=== PATIENT | male | born 1975 | race Caucasian/White ===

== ENCOUNTER 2023-09-29 10:35 | Outpatient (CLI) | payer OTHER, SELFPAY | END 2023-09-29 10:36 | disposition home or self-care (01) | LOC: AMB 10-08 08:21 | PROVIDERS: Visit Provider Emergency Medicine | DX: S09.90XA Unspecified injury of head, initial encounter (principal); W11.XXXA Fall on and from ladder, initial encounter; Y93.H3 Activity, building and construction; Y92.512 Supermarket, store or market as the place of occurrence of the external cause | CPT/HCPCS: A0425; A0427 ==

== ENCOUNTER 2023-09-29 11:07 | Emergency (ER) | payer OTHER, SELFPAY ==
[2023-09-29] VITALS (12 sets, daily range): BP systolic 135–159; BP diastolic 86–109; PULSE 102–117; RESP 18; TEMP 36.8; O2SAT 94–98; BMI 38.5
--- NOTE | 2023-09-29 11:12 | CT_ITS ---
Patient: NATASHA SELLERS Facility:?[facility] Patient ID:?[id number] Site Patient ID:?[id number]. Site :?[id number] Study:?CT-Head CODE TRAUMA-09/29/2023 11:26:23 AM Ordering Physician:?DR. FARLEY Final Report: INDICATION: Fall, head trauma TECHNIQUE: CT head without contrast. COMPARISON: None. FINDINGS: CSF spaces: Within normal limits for age. Brain parenchyma: The garcia-white differentiation is normal. No sign of mass, hemorrhage, or midline shift. Skull base and calvarium: Mucosal thickening paranasal sinuses. Left parietal scalp hematoma. The visualized orbits are grossly unremarkable. No skull fractures. IMPRESSION: Left parietal scalp hematoma without calvarial fracture or intracranial bleed. Please note that all CT scans at this facility use dose modulation, iterative reconstruction, and/or weight-based dosing when appropriate to reduce radiation dose to as low as reasonably achievable. Dictated by Eldon Villasenor MD @ 09/29/2023 11:40:40 AM Signed by:?Eldon Villasenor MD @09/29/2023 11:40:40 AM (Electronic Signature)
--- NOTE | 2023-09-29 11:13 | ED_ITS ---
HPI - General Adult General Date Seen: 09/29/23 Chief complaint: Fall/Minor Trauma Stated complaint: Fall from ladder Time Seen by Provider: 09/29/23 11:12 History of Present Illness HPI narrative: This is a 47-year-old generally healthy male who is brought to the ER today by EMS for head injury. He is a trauma team activation, activated pre-hospital. He is generally healthy. He is allergic to penicillin. Last tetanus shot was in 2020. He is from [place]. 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. He was up on a ladder. His feet were probably 5 ft above the ground. The ladder slipped or buckled underneath him and he fell. He struck his head against the ground. No loss of consciousness but he did suffer head injury. He has a fairly large left parietal scalp hematoma with an overlying abrasion. Small amount of scalp bleeding that was easily controlled by direct pressure. He has had a headache since onset. No other neurologic symptoms. No nausea. No blurry vision. No confusion. No seizure. No numbness or tingling in his arms or legs. He was able to ambulate after the fall. Because of his headache EMS established a 22 gauge IV in his right hand and gave him fentanyl for his headache. He did not have any neck pain or back pain. No chest pain or abdominal pain. Patient is alert and oriented he is worried about his head injury. He does not take any medications. No blood thinners. No history of coagulopathy. Related Data Allergies Allergy/AdvReac Type Severity Reaction Status Date / Time Penicillins Allergy Verified 09/29/23 12:11 Sulfa (Sulfonamide AdvReac Severe Rash Verified 09/29/23 12:11 Antibiotics) Exam Narrative: Exam Narrative: Primary survey Airway-patent. Breathing easily. No stridor Breathing-lung sounds clear and equal. Oxygen normal on room air. No chest Circulation-regular rate rhythm. Some symmetric cap refill in 4 extremities. No active bleeding. Blood pressure elevated, likely due to anxiety and pain Disability-no focal deficits. Alert and ordered x3. GCS 15. Following commands. Move all 4 extremities purposefully Constitutional: Appears well-developed and well-nourished. Alert. Conversant. Non toxic. HENT: Head: There is a 8 x 8 cm left parietal scalp hematoma with an overlying scalp abrasion. No active bleeding. No palpable depressed skull fracture.. Nose: Nose normal. Mouth/Throat: Oral mucosa is clear and moist. no trismus. Pharynx normal. Tonsils symmetric. No tonsillar enlargement, erythema, or exudate. Lower teeth are normal. Upper teeth are absent. Eyes: Conjunctivae normal. EOM normal. Pupils equal, round, and reactive to light. No scleral icterus. Neck: Normal range of motion. Neck supple. No tracheal deviation present. No posterior midline tenderness. No step-off. Trachea midline. No signs of neck trauma Cardiovascular: Normal rate, regular rhythm. No gallop. No friction rub. No murmur heard. Symmetric radial and PT artery pulses Pulmonary/Chest: Effort normal. No stridor. No respiratory distress. No wheezes. No rales. No rhonchi . No ribcage tenderness. Abdominal: Soft. Bowel sounds normal. No distension. No mass. No tenderness. No rebound. No guarding. Musculoskeletal: No T or L-spine tenderness. Pelvis stable per RUE: Normal range of motion. No tenderness. No deformity LUE: Normal range of motion. No tenderness. No deformity RLE: Normal range of motion. No edema. No tenderness. No deformity LLE: Normal range of motion. No edema. No tenderness. No deformity Neurological: Mental status normal. Attention normal. Alert and oriented x3. GCS 15. Memory normal. Speech fluent. Cognition normal. Cranial Nerves intact II-XII except I did not formally test gag or visual acuity. EOMI. Palate elevates symmetrically and tongue protrudes in the midline. Strength: 5/5 trapezius on the right and left 5/5 deltoid on the right and left 5/5 biceps on the right and left 5/5 triceps on the right and left 5/5 anesthetist on the right and left 5/5 thumb opposition on the right and le ft 5/5 finger abduction on the right and le ft 5/5 hip flexors (L3) on the right and le ft 5/5 quadriceps (L4) on the right and lef t 5/5 tibialis anterior on the right and l eft 5/5 EHL (L5) on the right and left 5/5 gastrocnemius (S1) on the right and left 5/5 hamstring on the right and left Sensation intact to light touch in both upper extremities (C4-T1) Sensation intact to light touch in Both lower extremities (L4-S1). Finger to nose and coordination normal. Gait normal. Skin: Skin is warm and dry. No rash noted. No pallor. Normal capillary refill. Psychiatric: He is worried about the potential for brain injury. I think he is worried about what EMS told him. However he is alert and oriented has good recollection. He is appropriate, cooperative, polite. Const: Vital Signs, click to edit/add: Vital Signs - 24 hr 09/29/23 11:22 09/29/23 11:23 09/29/23 11:27 Temperature Pulse Rate 106 H 112 H 104 H Pulse Rate [Right Pulse Oximeter] Respiratory Rate Blood Pressure 156/96 H 150/98 H Blood Pressure [Ri ght Upper Arm] Pulse Oximetry 97 97 96 Oxygen Delivery Me thod 09/29/23 11:30 09/29/23 11:31 09/29/23 11:41 Temperature Pulse Rate 117 H 107 H 107 H Pulse Rate [Right Pulse Oximeter] Respiratory Rate Blood Pressure 149/102 H 135/86 Blood Pressure [Ri ght Upper Arm] Pulse Oximetry 97 96 94 Oxygen Delivery Me thod 09/29/23 11:48 09/29/23 11:51 09/29/23 12:00 Temperature Pulse Rate 113 H 116 H 102 H Pulse Rate [Right Pulse Oximeter] Respiratory Rate Blood Pressure 147/109 H Blood Pressure [Ri ght Upper Arm] Pulse Oximetry 98 96 95 Oxygen Delivery Me thod 09/29/23 12:02 09/29/23 12:03 09/29/23 12:11 Temperature 98.3 F Pulse Rate 111 H 109 H Pulse Rate [Right Pulse Oximeter] 104 H Respiratory Rate 18 Blood Pressure 157/107 H Blood Pressure [Ri ght Upper Arm] 159/105 H Pulse Oximetry 97 97 98 Oxygen Delivery Me thod Room Air Course Course ED Course: Recheck-remains alert and oriented x3. Still having headache. Tylenol administered. Discussed CT findings with the patient. He declines my offer to have a phone conversation with his family at home in [place]. Vital Signs Vital signs: Initial Vital Signs Pulse Rate 106 H 09/29/23 11:22 Blood Pressure 156/96 H 09/29/23 11:22 Blood Pressure Mean 116 H 09/29/23 11:22 Pulse Oximetry 97 09/29/23 11:22 Vital Signs Pulse Rate 106 H 09/29/23 11:22 Blood Pressure 156/96 H 09/29/23 11:22 Pulse Oximetry 97 09/29/23 11:22 Temperature 98.3 F 09/29/23 12:11 Pulse Rate 104 H 09/29/23 12:11 Respiratory Rate 18 09/29/23 12:11 Blood Pressure 159/105 H 09/29/23 12:11 Pulse Oximetry 98 09/29/23 12:11 Oxygen Delivery Method Room Air 09/29/23 12:11 Medical Decision Making MDM Narrative Medical decision making narrative: This patient presents with blunt head trauma with a fairly large left parietal scalp hematoma.. Differential includes intracranial injuries (e.g. skull fracture, epidural hematoma, subdural hematoma, intracerebral hemorrhage, and traumatic subarachnoid hemorrhage), verses concussion or other traumatic brain injury. CT imaging was obtained and fortunately was normal. At this time it appears that the patient's symptoms are due to a concussion. The patient understand that they must return if any red flags appear/develop in the coming hours/days, as this may represent an indication to perform a repeat CT scan or further evaluation. I have noted that red flags include: headaches that get worse, increased drowsiness, strange behavior, repetitive speech, seizures, repeated vomiting, growing confusion, increased irritability, slurred speech, weakness or numbness, and loss of responsiveness. This information will also be provided in writing at discharge. I have discussed the second impact syndrome, and the importance of not sustaining repeated concussion in the next 1-2 weeks. Post concussive syndrome is also discussed. The patient's questions have been answered. They have a responsible adult (his co- worker/boss) to accompany them home. Although he fell off a ladder the, the remainder of his head to toe trauma exam is negative. I am able to clear his C-spine clinically. No evidence for any other thoracic or abdominal injury or back injury. No evidence for any long bone orthopedic fracture. CBC and INR are normal. Blood pressure noted to be elevated. Consult outpatient follow-up with primary care when he gets home to [place] for blood pressure recheck and health maintenance. Lab Data Labs: Lab Results 09/29/23 09/29/23 Range/Units 11:40 11:45 WBC 8.87 (4.50-11.00) K/uL RBC 4.78 (4.30-5.90) m/uL Hgb 13.8 (13.5-17.5) gm/dL Hct 40.6 (37.0-53.0) % MCV 85 (80-100) fL MCH 29 (26-34) pg MCHC 34 (32-36) gm/dL RDW Coeff of Austyn 12.4 (11.5-15.5) % Plt Count 220 (140-440) K/uL Neut % (Auto) 70.8 (42.0-72.0) % Lymph % (Auto) 21.4 (20-44) % [place] % (Auto) 5.4 (0.0-11.0) % Eos % (Auto) 1.9 (0.0-7.0) % Baso % (Auto) 0.3 (0.0-3.0) % Neut # (Auto) 6.27 (1.7-7.0) K/uL Lymph # (Auto) 1.90 (0.90-2.90) K/uL [place] # (Auto) 0.50 (0.00-0.90) K/UL Eos # (Auto) 0.17 (0.00-0.50) K/uL Baso # (Auto) 0.03 (0.00-0.30) K/uL Abs Immat Gran (auto) 0.02 (0.00-0.30) K/uL Imm/Tot Granulo (auto) 0.2 % INR 0.93 (0.91-1.10) Urine Color Yellow (Yellow) Urine Appearance Clear (Clear) Urine pH 6.0 (5.0-8.5) Ur Specific [place] >= 1.030 (1.000-1.030) Urine Protein 3+ A (Negative) Urine Glucose (UA) Negative (Negative) Urine Ketones Negative (Negative) Urine Blood 2+ A (Negative) Urine Nitrite Negative (Negative) Urine Bilirubin Negative (Negative) Urine Urobilinogen 0.2 (0.2-1.0) Ur Leukocyte Esterase Negative (Negative) Urine RBC 5-10 A (0-2) Urine WBC 0-2 (0-5) Ur Squamous Epith Cells None (None-Few) Urine Bacteria None (None) Urine Mucus Few A (None) Imaging Data CT scan - head: Attestation: I have reviewed the pertinent imaging results. My impression: no bleed Radiologist's impression: IMPRESSION: Left parietal scalp hematoma without calvarial fracture or intracranial bleed. Discharge Plan Discharge Clinical Impression: Concussion, Hematoma of left parietal scalp Patient Disposition: Home, Self-Care Condition: Stable Instructions: Concussion (ED) Activity Level: No Restrictions Discharge Diet: Regular Follow Up/Referrals: Provider,Not a Local [Primary Care Provider] - Stand Alone Forms: [employer] Info Instructions
[2023-09-29 11:56] LABS: Basophils Absolute Auto 0.03 K/uL (0.00-0.30); Basophils Percent Auto 0.3 % (0.0-3.0); Eosinophils Absolute Auto 0.17 K/uL (0.00-0.50); Eosinophils Percent Auto 1.9 % (0.0-7.0); Hematocrit 40.6 % (37.0-53.0); Hemoglobin* 13.8 gm/dL (13.5-17.5); Immature Granulocytes Abs Auto 0.02 K/uL (0.00-0.30); Immature Granulocytes Pct Auto 0.2 %; Lymphocytes Percent Auto 21.4 % (20-44); Mean Corpuscular HGB Conc 34 gm/dL (32-36); Mean Corpuscular Hemoglobin 29 pg (26-34); Mean Corpuscular Volume 85 fL (80-100); Monocytes Percent Auto 5.4 % (0.0-11.0); Neutrophils Absolute Auto 6.27 K/uL (1.7-7.0); Neutrophils Percent Auto 70.8 % (42.0-72.0); Platelet Count* 220 K/uL (140-440); RDW Coefficient of Variation % 12.4 % (11.5-15.5); Red Blood Count 4.78 m/uL (4.30-5.90); White Blood Count* 8.87 K/uL (4.50-11.00)
[2023-09-29 12:14] LABS: INR 0.93 (0.91-1.10); Prothrombin Time 13.1 Seconds
[2023-09-29 12:19] LABS: Slide Review Reflex No
[2023-09-29 13:04] LABS: Appearance Urine Clear (Clear); Bilirubin Urine Negative (Negative); Blood Urine 2+ (Negative); Color Urine Yellow (Yellow); Glucose Urine Negative (Negative); Ketones Urine Negative (Negative); Leukocyte Esterase Urine Negative (Negative); Nitrite Urine Negative (Negative); Protein Urine 3+ (Negative); Specific Gravity Urine >= 1.030 (1.000-1.030); Urobilinogen Urine 0.2 (0.2-1.0)
[2023-09-29 13:39] LABS: Mucus Urine Few; WBC Urine 0-2 (0-5)
== END 2023-09-29 13:15 | disposition home or self-care (01) ==
PROVIDERS: Emergency Provider Emergency Medicine
DX: S06.0X0A Concussion without loss of consciousness, initial encounter (principal); W11.XXXA Fall on and from ladder, initial encounter; S00.03XA Contusion of scalp, initial encounter
CPT/HCPCS: 36415; 70450; 81001; 85025; 85610; 99283; 99284; 99291; G0390